=== PATIENT | male | born 1995 | race Caucasian/White ===

== ENCOUNTER 2016-12-08 13:16 | Emergency (ER) | payer OTHER ==
[~2016-12-08] VITALS: Ht 182.9 cm; Wt 108.3 kg
[2016-12-08 13:32] VITALS: TEMP 37.4; Ht 182.9 cm; Wt 108.3 kg
[2016-12-08] MEDS ORDERED: CYCLOBENZAPRINE HCL 10 MG TAB PO STA (14:17)
[2016-12-08] MEDS ORDERED: KETOROLAC TROMETHAMINE 60 MG/2 ML VIAL IM STA (14:17)
[2016-12-08] MEDS ORDERED: NAPR-1169 PO (14:50)
[2016-12-08] MEDS ORDERED: CYCL10TA6 PO (14:50)
--- NOTE | 2016-12-08 14:52 | EMERGENCY ROOM VISIT NOTE ---
ED Visit Note First contact with patient: 13:54 CHIEF COMPLAINT: Low back pain HISTORY OF PRESENT ILLNESS: This 21-year-old male patient presents to the emergency department, ambulatory, complaining of pain in the low back/right hip which began 2 days ago. He states the pain began spontaneously when he awoke from sleep. He states the night that the pain began, he had been coughing and dealing with an upper respiratory infection. He states he is concerned that the coughing could have caused some muscle spasms. The pain was gradual in onset, is now constant and worse with movement. The patient notes the pain as stabbing and a 8/10, but 10/10 at its worst. The patient has taken ibuprofen 600 mg very intermittently without relief of the pain. The patient denies any loss of control of their bowel or bladder functions. There has been no leg numbness or weakness, and no change in sensation. No nausea or vomiting or abdominal pain. No chest pain or shortness of breath. The patient has had prior lumbar herniated disc and surgery approximally 2 and half years ago. The pain he is experiencing now is not the same as the pain he has experienced before.. No dysuria or increased urinary frequency. The patient denies injury. REVIEW OF SYSTEMS: A 10 system review of systems was performed with positives and pertinent negatives listed in the history of present illness. All other systems were reviewed and are negative. ALLERGIES: None MEDICATIONS: None PMH: None SOCIAL HISTORY: Is a [employer] student. He lives locally with his roommates. The patient denies drug, alcohol, tobacco use. PHYSICAL EXAM: VITALS: Vitals are noted on the nurse's note and reviewed by myself. Vital signs stable. GENERAL: This is a 21-year-old white male, in no acute distress, nondiaphoretic , well-developed well-nourished. SKIN: The skin was without rashes, erythema, edema, or bruising. Capillary refill less than 2 seconds. NECK: Supple without nuchal rigidity. No cervical spine tenderness. No paraspinous muscle tenderness. HEART: Regular rate and rhythm without murmurs gallops or rubs. LUNGS: Clear to auscultation bilaterally without wheezes, rales or rhonchi. ABDOMEN: Positive bowel sounds x 4. Normal tympanic percussion. Soft, nontender, without masses or organomegaly. Manley sign negative. MUSCULOSKELETAL: No muscle atrophy, erythema, or edema noted of the back. There is tenderness over the SI joint on the right. There is no tenderness over the lumbar spinous processes. There is no tenderness over the paraspinous muscles bilaterally. There is no tenderness over the thoracic spine or paraspinous muscles. There are muscle spasms present in the lumbar back. The patient is slow to move around with maximum tenderness with sitting from a lying position. Positive straight leg raise test. NEURO: Patient was alert and oriented to person place and time. Normal sensation to light and sharp touch. Deep tendon reflexes 2+ in the lower extremities. Dorsalis pedis pulse 2+ bilaterally. Strength 5/5 and equal in the bilateral lower extremities. EMERGENCY DEPARTMENT COURSE: The patient was seen and evaluated as above. I discussed with him options including imaging, the patient does not this is necessary. I agree, as the patient did not sustain an injury. The patient was given 60 mg Toradol IM and 10 mg Flexeril by mouth. Discharge instructions were reviewed and the patient was discharged home in good condition. I attest that I have personally reviewed the patient's current medication list. Patient was found to have normal blood pressure on screening and does not require follow-up. DIFFERENTIAL DIAGNOSIS: Lumbar strain, sciatica, disc protrusion, cauda equina syndrome, urinary tract infection, bowel obstruction, malignancy, and others DIAGNOSIS: Lumbar strain with right sciatica Current/Historical Medications Scheduled Naproxen (Naprosyn), 500 MG PO BID Scheduled PRN Cyclobenzaprine Hcl (Flexeril), 10 MG PO TID PRN for Muscle Spasms Allergies Coded Allergies: No Known Allergies (Unverified , 12/08/16) Vital Signs Date Time Temp Pulse Resp B/P (MAP) Pulse Ox O2 Delivery O2 Flow Rate FiO2 12/08/16 15:09 85 16 156/90 93 12/08/16 13:32 37.4 88 18 162/101 96 Room Air Medications Administered Medications (Trade) Dose Ordered Sig/Alok Route Start Time Stop Time Status Last Admin Dose Admin Ketorolac Tromethamine (Toradol Inj) 60 mg NOW STAT IM 12/08/16 14:17 12/08/16 14:19 DC 12/08/16 14:31 60 MG Cyclobenzaprine HCl (Flexeril Tab) 10 mg NOW STAT PO 12/08/16 14:17 12/08/16 14:19 DC 12/08/16 14:31 10 MG Departure Information Impression Primary Impression: Low back pain Dispostion Home / Self-Care Condition GOOD Prescriptions Cyclobenzaprine Hcl (FLEXERIL) 10 Mg Tab 10 MG PO TID Y for Muscle Spasms, #15 TAB Prov: Margaret Gibbons PA-C 12/08/16 Naproxen (Naprosyn) 500 Mg Tab 500 MG PO BID for 14 Days, #28 TAB Prov: Margaret Gibbons PA-C 12/08/16 Referrals [facility] (PCP) Patient Instructions ED Neck Back Pain General, ED Sciatica, [facility] Additional Instructions You have been treated in the Emergency Department for Back Pain. You have been prescribed Flexeril (cyclobenzaprine) 1 tabs orally, three times per day. Do NOT exceed 30 mg (3 tabs) per day. Take your first dose at bedtime as it can make you drowsy. Always take all medications as prescribed. You did receive your first dose of Flexeril in the emergency department today. You were prescribed naproxen to be taken twice daily for the next 7-14 days. Please use this medication only as prescribed. Do not take any other anti- inflammatory medications with this such as Advil, ibuprofen, Aleve, and naproxen , Motrin. For pain control, you can use the following [id number] medicines (if >12 yo): Ibuprofen(Motrin, Advil) may be used for fever or pain. Use 600mg every six hours as needed. Take with food. Avoid using more than 2400mg in a 24 hour period. Do not use 2400mg per day for more than three consecutive days without physician direction. Prolonged inappropriate use can lead to stomach upset or ulcers. (AND/OR) Acetaminophen(Tylenol) may be used for fever or pain. Use 1000mg every six hours as needed. Avoid using more than 3000mg in a 24 hour period. If this is an acute injury, ice can be applied to the area of pain for the first 3 days to help decrease pain and inflammation. After the first 3 days, a heating pad can be used over the area for continued soothing relief. You should schedule a follow-up appointment in 2-3 days with your Primary Care Provider/S for further evaluation and treatment of your back pain. Return to the Emergency Department if your current symptoms worsen despite treatment course outlined above, or if you develop any of the following symptoms : intractable pain despite aforementioned treatment course, loss of control of your bowel or bladder, numbness or tingling in your groin, or development of a fever. School Instructions Return To School: 2 days Problem Qualifiers Primary Impression: Low back pain Chronicity: acute Back pain laterality: right Sciatica presence: with sciatica Sciatica laterality: sciatica of right side Qualified Codes: M54.41 - Lumbago with sciatica, right side
[2016-12-08 15:09] VITALS: BP 156/90; PULSE 85; O2SAT 93
== END 2016-12-08 15:13 | disposition home or self-care (01) ==
LOC: C.EDB 13:19 → C.EDD 15:13
DX: M54.41 Lumbago with sciatica, right side (principal)